=== PATIENT | male | born 2000 | race Hispanic/Latino ===

== ENCOUNTER 2024-04-18 19:20 | Emergency (ER) | payer SELFPAY ==
[~2024-04-18] VITALS: Ht 180.3 cm; Wt 71.6 kg
[~2024-04-18 19:20] MED LIST: ANTI-FUNGAL12 EX
[2024-04-18] MEDS ORDERED: ACETAMINOPHEN 500 MG TAB PO ONE (20:00)
[2024-04-18] MEDS ORDERED: IBUPROFEN 800 MG/TAB PO ONE (20:00)
[2024-04-18 20:24] LABS: URINE BILIRUBIN - DIPSTICK Negative (NEGATIVE); URINE BLOOD DIPSTICK Trace-lysed (NEGATIVE); URINE GLUCOSE - DIPSTICK Negative (NEGATIVE); URINE KETONE Negative (NEGATIVE); URINE LEUK ESTERASE Negative (NEGATIVE); URINE NITRITE - DIPSTICK Negative (Negative); URINE PROTEIN - DIPSTICK Negative (NEG-TRACE); URINE UROBILINOGEN - DIPSTICK 0.2 E.U./dL (0.2)
[2024-04-18 20:25] LABS: BASO% 0.3 % (0-3); EOS% 1.9 % (0-8); HEMATOCRIT 43.8 % (39.0-50.0); HEMOGLOBIN 14.9 g/dl (14.0-18.0); IMMATURE GRANULOCYTES 0.2 % (0.0-5.0); LYMPH% 37.3 % (15-41); MEAN CELL VOLUME 88.8 fL CALC (80.0-100.0); MEAN CORPUSCULAR HGB 30.2 pG CALC (26.0-32.0); MONO% 5.7 % (2-13); NEUT# 4.86 thou/uL (1.82-7.42); NEUT% 54.6 % (42-76); RED BLOOD COUNT 4.93 mill/uL (4.70-6.10); RED CELL DISTRI WIDTH 11.8 % (11.5-15.5)
[2024-04-18 20:27] LABS: URINE COLOR Yellow
[2024-04-18 20:38] LABS: ALBUMIN 4.5 g/dL (3.2-5.0); BILIRUBIN, TOTAL 0.4 mg/dL (0.2-1.3); TOTAL PROTEIN 7.4 g/dL (6.3-8.2)
[2024-04-18 20:53] VITALS: BP 128/76
== END 2024-04-18 20:53 | disposition home or self-care (01) | DRG 866 ==
LOC: ED 19:20
PROVIDERS: Family Medicine
DX: B34.9 Viral infection, unspecified (principal); Z20.822 Contact with and (suspected) exposure to COVID-19